=== PATIENT | male | born 1950 | race African-American/Black ===

== ENCOUNTER → 2016-07-14 | Outpatient (CLI) | payer OTHER ==
[2016-07-14 13:40] LABS: Blood Urea Nitrogen 10 mg/dL (9-20); Non-African American GFR(MDRD) >60 (>60 ml/min/1.73 sqM)
--- NOTE | 2016-07-14 15:10 | CT ---
EXAMINATION TYPE: CT chest w con DATE OF EXAM: 07/14/2016 2:22 PM COMPARISON: NONE HISTORY: Patient poor historian. Patient complains of cough. Pulmonary nodule. CT DLP: 241.3 mGycm. Automated Exposure Control for Dose Reduction was Utilized. TECHNIQUE: CT scan of the thorax is performed following with IV Contrast, patient injected with 100 mL of Omnipaque 300. FINDINGS: LUNGS: Mild underlying emphysematous changes seen most pronounced in lung apices. There is mild apica l scarring bilaterally. There is slightly more prominent spiculated scarlike opacity posteriorly righ t upper lung measuring 1.4 x 0.6 cm on axial image 9. There is more nodular scarlike opacity anterior ly left upper lung measuring 1.2 x 0.7 cm on axial image 10, this has some fatty component anteriorly with more soft tissue component inferiorly and posteriorly. There is 5 x 3 mm nodule left lung base laterally on axial image 53. Right lung is clear. No pleural effusion or pneumothorax is seen bilater ally. Tracheobronchial tree is patent. MEDIASTINUM: There are no greater than 1 cm hilar or mediastinal lymph nodes. No pericardial effusi on is seen. Mild mixed plaque in the thoracic aorta is seen. OTHER: Bilateral gynecomastia is noted. A 1.2 cm low dense lesion posteriorly or below level right ki dney on axial image 76 medially likely reflect simple cyst. IMPRESSION: Mild underlying emphysematous change with biapical scarring and slightly more prominent s carlike opacity left upper lung at 2 levels, favor postinflammatory etiology but neoplasm cannot be e xcluded. Advise PET/CT correlation to further evaluate these levels.
== END | disposition home or self-care (01) ==
LOC: RADCTMAIN 13:05
PROVIDERS: ATTEND Nurse Practitioner Acute Care
DX: J43.9 Emphysema, unspecified (principal); J98.4 Other disorders of lung
CPT/HCPCS: 82565; 84520; 71260; 36415; Q9967

== ENCOUNTER 2017-02-16 09:44 | Emergency (ER) | payer MEDICARE, OTHER ==
[2017-02-16 09:50] VITALS: RESP 18; TEMP 97.1
--- NOTE | 2017-02-16 10:14 | ED ---
Abdominal Pain HPI - General Chief Complaint: Abdominal Pain Stated Complaint: constipation Time Seen by Provider: 02/16/17 09:51 Source: patient, RN notes reviewed Mode of arrival: ambulatory Limitations: no limitations - History of Present Illness Initial Comments: 66-year-old male presents emergency Department chief complaint constipation. Patient states him constipation last several weeks. He is discharged from over- the-counter medications which included fiber, stool softeners. Patient states he had some old MiraLAX from his primary care physician is 2 years ago tried this with no relief. He denies any emesis suppositories. Denies abdominal discomfort including nausea, vomiting. Patient has fever, chills, chest pain or shortness of breath. - Related Data Home Medications Medication Instructions Recorded Confirmed Cholecalciferol [Vitamin D3] 1,000 unit PO DAILY 02/16/17 02/16/17 Ibuprofen [Motrin] 800 mg PO TID PRN 02/16/17 02/16/17 Polyethylene Glycol 3350 [Miralax] 17 gm PO DAILY 02/16/17 02/16/17 Potassium Chloride ER [K-Dur 10] 10 meq PO DAILY 02/16/17 02/16/17 Pregabalin [Lyrica] 75 mg PO BID 02/16/17 02/16/17 Psyllium Husk 100% [Metamucil 6 gm PO DAILY 02/16/17 02/16/17 Packet] Vitamin E (Dl,Tocopheryl Acet) 400 unit PO DAILY 02/16/17 02/16/17 [Vitamin E] traMADol HCL [Ultram] 50 mg PO BID PRN 02/16/17 02/16/17 Allergies Allergy/AdvReac Type Severity Reaction Status Date / Time Beta-Blockers Allergy Unknown Verified 02/16/17 10:20 (Beta-Adrenergic Bloc STEROIDS Allergy Unknown Uncoded 02/16/17 09:50 Review of Systems ROS Statement: Those systems with pertinent positive or pertinent negative responses have been documented in the HPI. ROS Other: All systems not noted in ROS Statement are negative. Past Medical History Past Medical History: GERD/Reflux, Hypertension History of Any Multi-Drug Resistant Organisms: None Reported Additional Past Surgical History / Comment(s): LEFT TOE SURGERY, AND RIGHT TOE SURGERY Past Psychological History: No Psychological Hx Reported Smoking Status: Current every day smoker Past Alcohol Use History: Occasional Past Drug Use History: None Reported General Exam Limitations: no limitations General appearance: alert, in no apparent distress Head exam: Present: atraumatic, normocephalic, normal inspection Respiratory exam: Present: normal lung sounds bilaterally. Absent: respiratory distress, wheezes, rales, rhonchi, stridor Cardiovascular Exam: Present: regular rate, normal rhythm, normal heart sounds. Absent: systolic murmur, diastolic murmur, rubs, gallop, clicks GI/Abdominal exam: Present: soft, normal bowel sounds. Absent: distended, tenderness, guarding, rebound, rigid Back exam: Absent: CVA tenderness (R), CVA tenderness (L) Course Vital Signs 02/16/17 09:47 Temperature 97.1 F L Pulse Rate 85 Respiratory 18 Rate Blood Pressure 189/101 O2 Sat by Pulse 99 Oximetry Medical Decision Making - Medical Decision Making 58-year-old male present emergency from for constipation. Patient was given an enema here had a large bowel movement states he feels much better at this time. Patient will be discharged return parameters discussed. Disposition Clinical Impression: Constipation Disposition: HOME SELF-CARE Condition: Stable Instructions: Constipation (ED) Additional Instructions: Please return to the Emergency Department if symptoms worsen or any other concerns. Referrals: Mikael Craig DO [Primary Care Provider] - 1-2 days Time of Disposition: 11:43
--- NOTE | 2017-02-16 10:48 | XR ---
EXAMINATION TYPE: XR KUB DATE OF EXAM: 02/16/2017 CLINICAL DATA: 66-year-old male with pain, constipation for a week, [facility] COMPARISON: None FINDINGS: Lung bases are clear. No evidence for free intraperitoneal air. No dilated small bowel or air-fluid levels. Scattered air and stool seen throughout the colon extendi ng distally into the rectum. Moderate stool within the distal sigmoid and rectum. Pelvic phleboliths. IMPRESSION: 1. Moderate stool in the distal sigmoid and rectum. 2. No evidence of bowel obstruction or free intraperitoneal air.
[2017-02-16 12:19] VITALS: BP 199/93; PULSE 60
== END 2017-02-16 12:24 | disposition home or self-care (01) ==
LOC: EC 09:44
DX: K59.00 Constipation, unspecified (principal); K21.9 Gastro-esophageal reflux disease without esophagitis; I10 Essential (primary) hypertension; F17.200 Nicotine dependence, unspecified, uncomplicated; Z79.899 Other long term (current) drug therapy; Z88.8 Allergy status to other drugs, medicaments and biological substances
CPT/HCPCS: 74000; 99284

== ENCOUNTER → 2017-06-10 | Outpatient (CLI) | payer OTHER ==
[2017-06-10 13:01] LABS: Blood Urea Nitrogen 10 mg/dL (9-20)
--- NOTE | 2017-06-10 16:15 | CT ---
EXAMINATION TYPE: CT chest w con DATE OF EXAM: 06/10/2017 COMPARISON: CT chest July 14, 2016. HISTORY: Follow up solitary pulmonary nodule. CT DLP: 507 mGycm. Automated Exposure Control for Dose Reduction was Utilized. TECHNIQUE: CT scan of the thorax is performed following with IV Contrast, patient injected with 100 mL of Isovue M300. FINDINGS: LUNGS: Mild to moderate underlying emphysematous change is redemonstrated. Spiculated scarlike opacit y posterior left lung apex measuring roughly 15 x 5 mm axial image 10 is not significantly changed fr om prior. The more anterior spiculated lesion however is enlarged now measuring 2.8 x 1.8 cm axial im age 11 making it extremely suspicious for neoplasm. A 4 mm Groundglass nodule left lung base axial im age 54 is slightly less prominent from prior. Right lung remains clear. Tracheobronchial tree is pabon nt MEDIASTINUM: There is new suspicious left suprahilar low dense lymph node measuring 2.0 x 1.8 cm axia l image 26. There are additional suspicious new prevascular lymph nodes, for reference is 1.6 x 1.2 c m lymph node axial image 25. No cardiomegaly or pericardial effusion is seen. Mild calcified plaque aortic arch level is redemonstrated. OTHER: Small degree of bilateral gynecomastia is again seen. Slight underlying levoconvex scoliosis c entered in the upper thoracic spine is again seen. IMPRESSION: Mild to moderate emphysematous change with increasing size of anterior scarlike opacity l eft lung apex and new left suprahilar and mediastinal adenopathy is strongly suspicious for neoplasm. Confirmation with PET CT can be performed if desired to confirm and/or help stage. Consider bronchos copy or CT-guided sampling to confirm.
== END | disposition home or self-care (01) ==
LOC: RADCTMAIN 12:25
PROVIDERS: ATTEND Internal Medicine Critical Care Medicine
DX: J43.9 Emphysema, unspecified (principal); R59.0 Localized enlarged lymph nodes
CPT/HCPCS: 82565; 84520; 71260; 36415; Q9967

== ENCOUNTER → 2017-11-21 | Outpatient (CLI) | payer OTHER ==
--- NOTE | 2017-11-23 06:46 | PE ---
EXAMINATION TYPE: PET CT fusion skull to thigh DATE OF EXAM: 11/21/2017 COMPARISON: Chest CT June 10, 2017 and older study July 14, 2016 HISTORY: Lung cancer initial staging study. TECHNIQUE: Following the intravenous administration of 12.09 mCi of F-18 FDG, whole body images are performed from the skull base to the midthigh. Images are reviewed on the computer in the coronal, a xial, and sagittal planes. Reconstructed rotating images are created on independent workstation and reviewed on the computer. A noncontrast CT is performed in conjunction with the PET scan. SCAN: Initial Scan FINDINGS: SKULL BASE AND NECK: No suspicious hypermetabolic uptake is present CHEST, MEDIASTINUM, AND HILAR REGION: There is redemonstration background mild to moderate underlying emphysematous change. Correlating with prior CTs there is enlarging anterior left upper lobe spicula thiago mass or neoplasm with abnormal hypermetabolic uptake measuring 3.2 x 2.3 cm axial image 77, max S UV is 13.78. Lesion abuts the anterior pleura. Scarlike opacity measuring 1.6 x 0.6 cm superior and posterior to this axial image 71 does not show a bnormal hypermetabolic uptake. Corresponding to recent CT there is abnormal hypermetabolic uptake in left suprahilar and prevascular subcentimeter lymph nodes near axial image 94, max SUV is 6.59. There is redemonstration of 4 mm groundglass subpleural nodule left lower lobe axial image 133 withou t hypermetabolic uptake. ABDOMEN AND PELVIS: No suspicious hypermetabolic uptake is seen in the abdomen or pelvis. Normal exc retion is present. OSSEOUS STRUCTURES: No suspicious hypermetabolic uptake is seen. OTHER CT: There is age-related atrophy and chronic small vessel ischemic change in visualized brain p arenchyma. Mild to moderate calcified plaque bilateral carotid bulb level is present. Slightly nodular bilateral gynecomastia is redemonstrated. There is moderate calcified plaque of the distal abdominal aorta extending into pelvic branch vessels . 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 No multicentric or distal metastatic disease noted. TNM STAGING T2a,N2,M0 AJCC STAGING IIIa
== END | disposition home or self-care (01) ==
LOC: RADPETMAIN 11:47
PROVIDERS: ATTEND Nurse Practitioner Acute Care
DX: C34.90 Malignant neoplasm of unspecified part of unspecified bronchus or lung (principal); R59.0 Localized enlarged lymph nodes
CPT/HCPCS: 78815; A9552

== ENCOUNTER → 2017-12-16 | Outpatient (CLI) | payer OTHER ==
--- NOTE | 2017-12-16 23:02 | FL ---
MODIFIED SWALLOW / DEGLUTITION STUDY DATE OF EXAM: 12/16/2017 CLINICAL HISTORY: 67-year-old male with history of lung cancer and trouble swallowing, Dysphagia. TECHNIQUE: Deglutition study is performed utilizing thin liquid barium, honey and nectar thick liqui d barium, barium thick applesauce, and barium coated cracker. COMPARISON: None. Total fluoroscopy time: 3 minutes 20 seconds. Total images: None. Real-time fluoroscopy support was provided to speech pathology. FINDINGS: Swallow initiation and AP transit of bolus was delayed with premature spillage to the level of the va llecula. There is silent deep penetration with thin liquids without aspiration. Occasional flash penetration w as demonstrated with nectar liquids. No other penetration or aspiration is seen. IMPRESSION: 1. Oral dysphagia. There is silent deep penetration with thin liquid. Additionally, there is flash pe netration with nectar liquids. No other penetration or aspiration seen. 2. Please refer to speech therapist notes for further details if necessary.
== END ==
LOC: RADFLMAIN 11:23
PROVIDERS: ATTEND Family Medicine
DX: R13.11 Dysphagia, oral phase (principal)
CPT/HCPCS: 74230

== ENCOUNTER → 2018-08-11 | Outpatient (CLI) | payer OTHER ==
--- NOTE | 2018-08-11 14:58 | MR ---
MR brain with and without contrast HISTORY: Memory loss Multiplanar multisequence and postcontrast images through the brain following 6.5 cc Gadavist IV No comparisons There is no restricted diffusion. There are normal vascular flow voids. Orbits show symmetric appeara nce. Periventricular confluent and scattered white matter hyperintensities are present on inversion r ecovery T2-weighted sequences and are extensive. There is some motion on the exam. Increased signal a lso present within the ge. Age-related atrophy is present. No abnormal enhancement following contra st administration. Corpus callosum, cervical medullary junction, cerebellopontine angles are normal. There is a partially empty sella. Mild sinus disease in the ethmoid air cells. IMPRESSION: Age-related atrophy and chronic small vessel ischemia.
== END | disposition home or self-care (01) ==
LOC: RADMRIMAIN 12:58
PROVIDERS: ATTEND Psychiatry & Neurology Neurology
DX: G31.1 Senile degeneration of brain, not elsewhere classified (principal); I67.82 Cerebral ischemia
CPT/HCPCS: 70553; A9585

== ENCOUNTER 2018-12-31 20:35 | Inpatient (IN) | payer OTHER, MEDICARE ==
[2018-12-31] MEDS ORDERED: SODIUM CHLORIDE 0.9% 1,000 ML IV STA (21:03)
--- NOTE | 2018-12-31 21:03 | ED ---
Dizziness HPI - General Chief Complaint: Syncope Stated Complaint: Syncope Time Seen by Provider: 12/31/18 20:40 Source: patient, EMS, RN notes reviewed, old records reviewed Mode of arrival: EMS Limitations: physical limitation - History of Present Illness Initial Comments: This is a 68-year-old male the ER for evaluation. Patient presents today for e valuation of syncopal event. Waddell his head. Patient is on blood thinners does have history of underlying CA. Patient himself in the ER is denying any complaints but minimally responsive to questioning. History obtained from family as well as EMS. MD Complaint: dizziness, lightheadedness, near syncope (Syncopal event) -: minutes(s) Timing: sudden onset Description: sense of movement, off-balance History of Same: Yes History of Trauma: Yes Severity: mild Improves With: nothing Worsens With: nothing Associated Symptoms: denies other symptoms - Related Data Home Medications Medication Instructions Recorded Confirmed Polyethylene Glycol 3350 [Miralax] 17 gm PO DAILY 02/16/17 12/31/18 DULoxetine HCL [Cymbalta] 20 mg PO DAILY 12/31/18 12/31/18 Furosemide [Lasix] 20 mg PO DAILY 12/31/18 12/31/18 Naproxen 500 mg PO BID PRN 12/31/18 12/31/18 Tamsulosin [Flomax] 0.4 mg PO DAILY 12/31/18 12/31/18 amLODIPine [Norvasc] 5 mg PO DAILY 12/31/18 12/31/18 Allergies Allergy/AdvReac Type Severity Reaction Status Date / Time Beta-Blockers Allergy Unknown Verified 12/31/18 21:58 (Beta-Adrenergic Bloc STEROIDS Allergy Unknown Uncoded 12/31/18 20:50 Review of Systems ROS Statement: Those systems with pertinent positive or pertinent negative responses have been documented in the HPI. ROS Other: All systems not noted in ROS Statement are negative. Past Medical History Past Medical History: Cancer, GERD/Reflux, Hypertension History of Any Multi-Drug Resistant Organisms: None Reported Additional Past Surgical History / Comment(s): LEFT TOE SURGERY, AND RIGHT TOE SURGERY, scar on chest pt states " it just grew there" Past Psychological History: No Psychological Hx Reported Smoking Status: Current every day smoker Past Alcohol Use History: Abuse, Daily, Heavy Past Drug Use History: Marijuana General Exam Limitations: physical limitation General appearance: alert, in no apparent distress, cachectic Head exam: Present: atraumatic, normocephalic, normal inspection Eye exam: Present: normal appearance, PERRL, EOMI. Absent: scleral icterus, conjunctival injection, periorbital swelling ENT exam: Present: normal exam, mucous membranes moist Neck exam: Present: normal inspection. Absent: tenderness, meningismus, lymphadenopathy Respiratory exam: Present: normal lung sounds bilaterally. Absent: respiratory distress, wheezes, rales, rhonchi, stridor Cardiovascular Exam: Present: regular rate, normal rhythm, normal heart sounds. Absent: systolic murmur, diastolic murmur, rubs, gallop, clicks GI/Abdominal exam: Present: soft, normal bowel sounds. Absent: distended, tenderness, guarding, rebound, rigid Extremities exam: Present: normal inspection, full ROM, normal capillary refill. Absent: tenderness, pedal edema, joint swelling, calf tenderness Back exam: Present: normal inspection Neurological exam: Present: alert, oriented X3, CN II-XII intact Psychiatric exam: Present: normal affect, normal mood Skin exam: Present: warm, dry, intact, normal color. Absent: rash Course Vital Signs 12/31/18 20:45 Temperature 98.1 F Pulse Rate 65 Respiratory 14 Rate Blood Pressure 105/51 O2 Sat by Pulse 99 Oximetry - Reevaluation(s) Reevaluation #1: 12/31/18 21:03 Medical records reviewed Reevaluation #2: 12/31/18 22:41 Patient having no improvement continued to sleep throughout exam and not reactive throughout reevaluation - Consultations Consultation #1: Spoke with Dr. Chakraborty who will admit patient EKG Findings - EKG Comments: EKG Findings:: EKG shows sinus rhythm rate of 68, VA 134, QRS 02, QTc 495 Medical Decision Making - Medical Decision Making Female the ER for evaluation will admit this patient for observation regarding syncopal event, events surrounding it since later unreliable. Patient is a cancer patient with a decreased appetite lately. No other significant findings noted - Lab Data Result diagrams: 12/31/18 20:50 12/31/18 20:50 Lab Results 12/31/18 12/31/18 12/31/18 Range/Units 20:50 20:50 20:50 WBC 14.1 H (3.8-10.6) k/uL RBC 4.00 L (4.30-5.90) m/uL Hgb 11.8 L (13.0-17.5) gm/dL Hct 34.6 L (39.0-53.0) % MCV 86.6 (80.0-100.0) fL MCH 29.4 (25.0-35.0) pg MCHC 34.0 (31.0-37.0) g/dL RDW 13.6 (11.5-15.5) % Plt Count 450 (150-450) k/uL Neutrophils % 62 % Lymphocytes % 24 % Monocytes % 7 % Eosinophils % 1 % Basophils % 1 % Neutrophils # 8.8 H (1.3-7.7) k/uL Lymphocytes # 3.3 (1.0-4.8) k/uL Monocytes # 1.0 (0-1.0) k/uL Eosinophils # 0.2 (0-0.7) k/uL Basophils # 0.2 (0-0.2) k/uL PT 10.1 (9.0-12.0) sec INR 0.9 (<1.2) APTT 23.5 (22.0-30.0) sec Sodium 129 L (137-145) mmol/L Potassium 3.3 L (3.5-5.1) mmol/L Chloride 91 L (98-107) mmol/L Carbon Dioxide 25 (22-30) mmol/L Anion Gap 13 mmol/L BUN 6 L (9-20) mg/dL Creatinine 0.50 L (0.66-1.25) mg/dL Est GFR (CKD-EPI)AfAm >90 (>60 ml/min/1.73 sqM) Est GFR (CKD-EPI)NonAf >90 (>60 ml/min/1.73 sqM) Glucose 119 H (74-99) mg/dL POC Glucose (mg/dL) (75-99) mg/dL POC Glu Pantograph Setter ID Calcium 10.2 (8.4-10.2) mg/dL Phosphorus 3.2 (2.5-4.5) mg/dL Magnesium 1.3 L (1.6-2.3) mg/dL Total Bilirubin 1.1 (0.2-1.3) mg/dL AST 38 (17-59) U/L ALT <6 L (21-72) U/L Alkaline Phosphatase 90 (38-126) U/L Creatine Kinase 41 L (55-170) U/L Troponin I (0.000-0.034) ng/mL NT-Pro-B Natriuret Pep pg/mL Total Protein 7.3 (6.3-8.2) g/dL Albumin 3.2 L (3.5-5.0) g/dL 12/31/18 12/31/18 12/31/18 Range/Units 20:50 20:50 21:02 WBC (3.8-10.6) k/uL RBC (4.30-5.90) m/uL Hgb (13.0-17.5) gm/dL Hct (39.0-53.0) % MCV (80.0-100.0) fL MCH (25.0-35.0) pg MCHC (31.0-37.0) g/dL RDW (11.5-15.5) % Plt Count (150-450) k/uL Neutrophils % % Lymphocytes % % Monocytes % % Eosinophils % % Basophils % % Neutrophils # (1.3-7.7) k/uL Lymphocytes # (1.0-4.8) k/uL Monocytes # (0-1.0) k/uL Eosinophils # (0-0.7) k/uL Basophils # (0-0.2) k/uL PT (9.0-12.0) sec INR (<1.2) APTT (22.0-30.0) sec Sodium (137-145) mmol/L Potassium (3.5-5.1) mmol/L Chloride (98-107) mmol/L Carbon Dioxide (22-30) mmol/L Anion Gap mmol/L BUN (9-20) mg/dL Creatinine (0.66-1.25) mg/dL Est GFR (CKD-EPI)AfAm (>60 ml/min/1.73 sqM) Est GFR (CKD-EPI)NonAf (>60 ml/min/1.73 sqM) Glucose (74-99) mg/dL POC Glucose (mg/dL) 145 H (75-99) mg/dL POC Glu Pantograph Setter ID Emily Teran Calcium (8.4-10.2) mg/dL Phosphorus (2.5-4.5) mg/dL Magnesium (1.6-2.3) mg/dL Total Bilirubin (0.2-1.3) mg/dL AST (17-59) U/L ALT (21-72) U/L Alkaline Phosphatase (38-126) U/L Creatine Kinase (55-170) U/L Troponin I <0.012 (0.000-0.034) ng/mL NT-Pro-B Natriuret Pep 264 pg/mL Total Protein (6.3-8.2) g/dL Albumin (3.5-5.0) g/dL - Radiology Data Radiology results: report reviewed (CT brain C-spine chest x-rays negative for acute disease), image reviewed Disposition Clinical Impression: Syncope, Anorexia, Weakness Disposition: ADMITTED IP TO THIS HOSP Condition: Fair Is patient prescribed a controlled substance at d/c from ED?: No Referrals: Mikael Craig DO [Primary Care Provider] - 1-2 days
[2018-12-31 21:09] LABS: Glucose,Whole Blood 145 mg/dL (75-99)
[2018-12-31 21:23] LABS: AST 38 U/L (17-59); African American GFR (CKD) >90 (>60 ml/min/1.73 sqM); Albumin 3.2 g/dL (3.5-5.0); Anion Gap 13 mmol/L; Blood Urea Nitrogen 6 mg/dL (9-20); Calcium 10.2 mg/dL (8.4-10.2); Carbon Dioxide 25 mmol/L (22-30); Chloride 91 mmol/L (98-107); Glucose 119 mg/dL (74-99); Magnesium 1.3 mg/dL (1.6-2.3); Phosphorus 3.2 mg/dL (2.5-4.5); Sodium 129 mmol/L (137-145); Total Bilirubin 1.1 mg/dL (0.2-1.3); Total Protein 7.3 g/dL (6.3-8.2)
[2018-12-31 21:24] LABS: ALT <6 U/L (21-72); Alkaline Phosphatase 90 U/L (38-126); Creatine Kinase 41 U/L (55-170); Potassium 3.3 mmol/L (3.5-5.1)
[2018-12-31 21:26] LABS: INR 0.9 (<1.2); Partial Thromboplastin Time 23.5 sec (22.0-30.0); Prothrombin Time 10.1 sec (9.0-12.0)
[2018-12-31 21:35] LABS: Basophils # (A) 0.2 k/uL (0-0.2); Basophils % (A) 1 %; Eosinophils # (A) 0.2 k/uL (0-0.7); Eosinophils % (A) 1 %; HCT 34.6 % (39.0-53.0); HGB 11.8 gm/dL (13.0-17.5); Lymphocytes # (A) 3.3 k/uL (1.0-4.8); Lymphocytes % (A) 24 %; MCH 29.4 pg (25.0-35.0); MCV 86.6 fL (80.0-100.0); Mean Platelet Volume 6.4; Monocytes % (A) 7 %; Neutrophils # (A) 8.8 k/uL (1.3-7.7); Neutrophils % (A) 62 %; Platelet Count 450 k/uL (150-450); RDW 13.6 % (11.5-15.5); WBC 14.1 k/uL (3.8-10.6)
--- NOTE | 2018-12-31 21:52 | XR ---
EXAMINATION TYPE: XR chest 2V DATE OF EXAM: 12/31/2018 COMPARISON: 06/03/2017 HISTORY: Syncope. Fall. TECHNIQUE: Frontal and lateral views of the chest are obtained. FINDINGS: There is an approximate 8 cm masslike density left upper lobe. There is increased density at the aortopulmonary window consistent with adenopathy. Heart size is normal. There is no heart fail ure. There is no pleural effusion. Bony thorax appears intact. IMPRESSION: Left upper lobe mass with mediastinal adenopathy significantly increased compared to las t exam. No heart failure.
--- NOTE | 2018-12-31 21:58 | CT ---
EXAMINATION TYPE: CT brain krystian george con DATE OF EXAM: 12/31/2018 COMPARISON: None HISTORY: fall, ams Neck pain CT DLP: 1372.1 mGycm Automated exposure control for dose reduction was used. TECHNIQUE: CT scan of the head and cervical spine are performed without contrast. FINDINGS: There is diffuse cerebral atrophy. There is hypodensity in the periventricular white rosemarie er. Exam is limited somewhat by motion. There is no midline shift. There is no sign of intracranial h emorrhage. The calvarium is intact. There is some straightening of the cervical spine. There is some degenerative disc space narrowing at C3-4 and C5-6 with spurring. Posterior elements are intact. There is no evidence for fracture. The s kull base is intact. IMPRESSION: Spondylotic changes in the cervical spine. No fracture. Cerebral atrophy and chronic small vessel ischemia. No acute intracranial abnormality.
[2018-12-31] MEDS ORDERED: ASPIRIN 81 MG PO STA (22:40)
[2018-12-31] MEDS ORDERED: NITROGLYCERIN SL TABS 0.4 MG TAB SUBLINGUAL PRN (22:40)
[2018-12-31] MEDS: SODIUM CHLORIDE 0.9% 1,000 ML IV SCH (22:55)
[2018-12-31 23:42] LABS: Appearance,Urine Cloudy (Clear); Bacteria,Urine Rare /hpf; Bilirubin,Urine Negative (Negative); Blood,Urine Negative (Negative); Color,Urine Light Yellow; Glucose,Urine (UA) Negative (Negative); Hyaline Casts,Urine 5 /lpf (0-2); Ketones,Urine Negative (Negative); Leukocyte Esterase,Urine Trace (Negative); Mucus,Urine Rare /hpf; Nitrite,Urine Negative (Negative); PH, Urine 7.5 (5.0-8.0); Protein,Urine Negative (Negative); RBC,Urine 1 /hpf (0-5); Specific Gravity,Urine 1.004 (1.001-1.035); Squamous Epithelial Cell,Urine <1 /hpf (0-4); Urobilinogen,Urine <2.0 mg/dL (<2.0); WBC,Urine 5 /hpf (0-5)
[2018-12-31] MEDS ORDERED: POTASSIUM CHLORIDE 20 MEQ in WATER FOR INJECTION 1 100ML.BAG IVPB ONE (23:45)
[2018-12-31] MEDS: MAGNESIUM SULFATE-D5W PMX 1 GM in DEXTROSE/WATER 1 100ML.BAG IVPB SCH (23:46)
[2019-01-01] MEDS: MAGNESIUM SULFATE-D5W PMX 1 GM in DEXTROSE/WATER 1 100ML.BAG IVPB SCH (01:25)
[2019-01-01 03:36] LABS: Basophils # (A) 0.1 k/uL (0-0.2); Basophils % (A) 0 %; Eosinophils # (A) 0.1 k/uL (0-0.7); Eosinophils % (A) 1 %; HCT 35.6 % (39.0-53.0); HGB 12.2 gm/dL (13.0-17.5); Lymphocytes # (A) 1.5 k/uL (1.0-4.8); Lymphocytes % (A) 12 %; MCH 29.4 pg (25.0-35.0); MCHC 34.2 g/dL (31.0-37.0); MCV 85.8 fL (80.0-100.0); Mean Platelet Volume 5.4; Monocytes # (A) 0.6 k/uL (0-1.0); Monocytes % (A) 5 %; Neutrophils # (A) 9.7 k/uL (1.3-7.7); Neutrophils % (A) 80 %; Platelet Count 399 k/uL (150-450); RBC 4.14 m/uL (4.30-5.90); RDW 13.5 % (11.5-15.5); WBC 12.1 k/uL (3.8-10.6)
[2019-01-01 03:51] LABS: ALT 13 U/L (21-72); AST 29 U/L (17-59); African American GFR (CKD) >90 (>60 ml/min/1.73 sqM); Albumin 3.3 g/dL (3.5-5.0); Alkaline Phosphatase 107 U/L (38-126); Anion Gap 9 mmol/L; Blood Urea Nitrogen 7 mg/dL (9-20); Calcium 10.5 mg/dL (8.4-10.2); Carbon Dioxide 29 mmol/L (22-30); Chloride 90 mmol/L (98-107); Cholesterol 124 mg/dL (<200); Glucose 127 mg/dL (74-99); HDL Cholesterol 51 mg/dL (40-60); LDL Cholesterol,Calculated 65 mg/dL (0-99); Potassium 3.1 mmol/L (3.5-5.1); Sodium 128 mmol/L (137-145); Total Bilirubin 0.9 mg/dL (0.2-1.3); Total Protein 7.4 g/dL (6.3-8.2); Triglycerides 41 mg/dL (<150)
[2019-01-01] MEDS ORDERED: POTASSIUM CHLORIDE ER 20 MEQ TAB.ER PO SCH (08:00)
[2019-01-01] MEDS: ASPIRIN 325 MG TAB PO SCH (08:56)
[2019-01-01] MEDS: POTASSIUM BICARBONATE/CIT AC 20 MEQ TABLET.EFF PO SCH ×2 (09:40→12:59)
[2019-01-01] MEDS: POLYETHYLENE GLYCOL 3350 17 GM POWD.PACK PO SCH (11:12)
[2019-01-01 11:36] VITALS: BMI 16.7
--- NOTE | 2019-01-01 12:42 | P.HPIM ---
History of Present Illness H&P Date: 01/01/19 Chief Complaint: Syncope and dizziness 68-year-old male patient brought to ED with complaint of a syncopal event; according to patient was coming out of the bedroom to eat when he felt very dizzy, weak and lightheaded and passed out on the floor; relates that patie nt didn't hit his head on the floor which is carpeted; patient did wake up and helped him to the dining chair but he remained weak and started having some tremors to both hands and sweaty at which time called EMS Review of Systems REVIEW OF SYSTEMS: CONSTITUTIONAL: No fever, no malaise, no fatigue. HEENT: No recent visual problems or hearing problems. Denied any sore throat. CARDIOVASCULAR: No chest pain, orthopnea, PND, no palpitations, no syncope. PULMONARY: No shortness of breath, no cough, no hemoptysis. GASTROINTESTINAL: No diarrhea, no nausea, no vomiting, no abdominal pain. NEUROLOGICAL: No headaches, no weakness, no numbness. HEMATOLOGICAL: Denies any bleeding or petechiae. GENITOURINARY: Denies any burning micturition, frequency, or urgency. MUSCULOSKELETAL/RHEUMATOLOGICAL: Denies any joint pain, swelling, or any muscle pain. ENDOCRINE: Denies any polyuria or polydipsia. The rest of the 14-point review of systems is negative. Past Medical History Past Medical History: Cancer, GERD/Reflux, Hypertension Additional Past Medical History / Comment(s): lung ca History of Any Multi-Drug Resistant Organisms: None Reported Additional Past Surgical History / Comment(s): LEFT TOE SURGERY, AND RIGHT TOE SURGERY, scar on chest pt states " it just grew there" Past Anesthesia/Blood Transfusion Reactions: No Reported Reaction Past Psychological History: No Psychological Hx Reported Smoking Status: Current every day smoker Past Alcohol Use History: Abuse, Daily, Heavy Additional Past Alcohol Use History / Comment(s): per pt consumes beer/shot three times daily, last use 12/31/18 Past Drug Use History: Marijuana - Past Family History Mother History Unknown: Yes Father History Unknown: Yes Medications and Allergies Home Medications Medication Instructions Recorded Confirmed Type Polyethylene Glycol 3350 [Miralax] 17 gm PO DAILY 02/16/17 12/31/18 History DULoxetine HCL [Cymbalta] 20 mg PO DAILY 12/31/18 12/31/18 History Furosemide [Lasix] 20 mg PO DAILY 12/31/18 12/31/18 History Naproxen 500 mg PO BID PRN 12/31/18 12/31/18 History Tamsulosin [Flomax] 0.4 mg PO DAILY 12/31/18 12/31/18 History amLODIPine [Norvasc] 5 mg PO DAILY 12/31/18 12/31/18 History Allergies Allergy/AdvReac Type Severity Reaction Status Date / Time Beta-Blockers Allergy Unknown Verified 12/31/18 21:58 (Beta-Adrenergic Bloc STEROIDS Allergy Unknown Uncoded 12/31/18 20:50 Physical Exam Vitals: Vital Signs Temp Pulse Pulse Resp BP BP Pulse Ox 01/01/19 07:58 97.9 F 65 16 140/67 97 01/01/19 03:10 97.8 F 74 16 132/62 01/01/19 00:05 97.9 F 69 16 150/69 99 12/31/18 23:48 98.7 F 68 18 120/67 96 12/31/18 21:00 65 18 128/87 98 12/31/18 20:45 98.1 F 65 14 105/51 99 Intake and Output 12/31/18 01/01/19 01/01/19 22:59 06:59 14:59 Output Total 400 Balance -400 Output: Urine 400 Other: Weight 49.895 kg - Constitutional General appearance: Present: average body habitus, cooperative, no acute distress - EENT Eyes: Present: anicteric sclerae, EOMI, PERRLA, normal appearance ENT: Present: hearing grossly normal, normal oropharynx Ears: bilateral: normal - Neck Neck: Present: normal ROM. Absent: lymphadenopathy, rigidity, thyromegaly Carotids: negative: bruit present Thyroid: bilateral: normal size, negative: enlarged, nodule - Respiratory Respiratory: bilateral: CTA, negative: rales, rhonchi, wheezing - Cardiovascular Rhythm: regular Heart sounds: normal: S1, S2 Abnormal Heart Sounds: Absent: systolic murmur, diastolic murmur - Gastrointestinal General gastrointestinal: Present: normal bowel sounds, soft. Absent: distended, organomegaly, tenderness - Genitourinary Genitourinary Comment(s): deferred - Integumentary Integumentary: Present: normal turgor. Absent: jaundiced, rash, ulcer - Neurologic Neurologic: Present: CNII-XII intact. Absent: focal deficits - Musculoskeletal Musculoskeletal: Present: gait normal, strength equal bilaterally - Psychiatric Psychiatric: Present: A&O x's 3, appropriate affect, intact judgment & insight Results CBC & Chem 7: 01/01/19 03:22 01/01/19 03:22 Labs: Abnormal Lab Results - Last 24 Hours (Table) 12/31/18 12/31/18 12/31/18 Range/Units 20:50 20:50 21:02 WBC 14.1 H (3.8-10.6) k/uL RBC 4.00 L (4.30-5.90) m/uL Hgb 11.8 L (13.0-17.5) gm/dL Hct 34.6 L (39.0-53.0) % Neutrophils # 8.8 H (1.3-7.7) k/uL Sodium 129 L (137-145) mmol/L Potassium 3.3 L (3.5-5.1) mmol/L Chloride 91 L (98-107) mmol/L BUN 6 L (9-20) mg/dL Creatinine 0.50 L (0.66-1.25) mg/dL Glucose 119 H (74-99) mg/dL POC Glucose (mg/dL) 145 H (75-99) mg/dL Calcium (8.4-10.2) mg/dL Magnesium 1.3 L (1.6-2.3) mg/dL ALT <6 L (21-72) U/L Creatine Kinase 41 L (55-170) U/L Albumin 3.2 L (3.5-5.0) g/dL Ur Leukocyte Esterase (Negative) Urine Bacteria (None) /hpf Hyaline Casts (0-2) /lpf Urine Mucus (None) /hpf 12/31/18 01/01/19 01/01/19 Range/Units 23:14 03:22 03:22 WBC 12.1 H (3.8-10.6) k/uL RBC 4.14 L (4.30-5.90) m/uL Hgb 12.2 L (13.0-17.5) gm/dL Hct 35.6 L (39.0-53.0) % Neutrophils # 9.7 H (1.3-7.7) k/uL Sodium 128 L (137-145) mmol/L Potassium 3.1 L (3.5-5.1) mmol/L Chloride 90 L (98-107) mmol/L BUN 7 L (9-20) mg/dL Creatinine 0.54 L (0.66-1.25) mg/dL Glucose 127 H (74-99) mg/dL POC Glucose (mg/dL) (75-99) mg/dL Calcium 10.5 H (8.4-10.2) mg/dL Magnesium (1.6-2.3) mg/dL ALT 13 L (21-72) U/L Creatine Kinase (55-170) U/L Albumin 3.3 L (3.5-5.0) g/dL Ur Leukocyte Esterase Trace H (Negative) Urine Bacteria Rare H (None) /hpf Hyaline Casts 5 H (0-2) /lpf Urine Mucus Rare H (None) /hpf Thrombosis Risk Factor Assmnt - Choose All That Apply Any of the Below Risk Factors Present?: Yes Other Risk Factors: Yes Each Risk Factor Represents 2 Points: Age 61-74 years Thrombosis Risk Factor Assessment Total Risk Factor Score: 2 Thrombosis Risk Factor Assessment Level: Low Risk Assessment and Plan Assessment: 1. Acute syncope; multifactorial; poor oral intake, dehydration, electrolyte imbalance - We will continue to monitor patient on telemetry 2. Electrolyte imbalance; hyponatremia/hypokalemia - We'll start patient on IV fluids, normal saline at a rate of 100 mL an hour; monitor renal function and electrolytes closely - Patient was treated for hypokalemia in ED; we will order stat labs to follow- up on electrolyte abnormality and supplement accordingly 3. Leukocytosis; possibly reactive; we will continue to monitor CBC and initiate sepsis workup if white blood count continues to trend upward patient is febrile 4. Hypertension; patient's blood pressure remains soft possibly due to dehydration; we will hold off on oral antihypertensive therapy until blood pressures improved 5. Lungs CA; patient relates that he was diagnosed about 3 years ago and has decided not to pursue any treatment 6. Constipation; continue with home dose of MiraLAX 7. DVT prophylaxis; SCDs/early ambulation CODE STATUS; full code Time with Patient: Greater than 30
[2019-01-01] MEDS: TAMSULOSIN 0.4 MG CAP.ER.24H PO SCH (12:59)
[2019-01-01] MEDS: SODIUM CHLORIDE 0.9% 1,000 ML IV SCH ×2 (13:00→21:11)
[2019-01-02] MEDS: SODIUM CHLORIDE 0.9% 1,000 ML IV SCH ×2 (01:58→15:39)
[2019-01-02 08:00] LABS: Basophils # (A) 0.1 k/uL (0-0.2); Basophils % (A) 1 %; Eosinophils # (A) 0.1 k/uL (0-0.7); Eosinophils % (A) 1 %; HCT 33.2 % (39.0-53.0); HGB 11.1 gm/dL (13.0-17.5); Lymphocytes # (A) 1.3 k/uL (1.0-4.8); Lymphocytes % (A) 15 %; MCH 29.2 pg (25.0-35.0); MCHC 33.5 g/dL (31.0-37.0); MCV 87.2 fL (80.0-100.0); Mean Platelet Volume 5.7; Monocytes # (A) 0.7 k/uL (0-1.0); Monocytes % (A) 8 %; Neutrophils # (A) 6.5 k/uL (1.3-7.7); Neutrophils % (A) 73 %; Platelet Count 373 k/uL (150-450); RBC 3.81 m/uL (4.30-5.90); RDW 13.7 % (11.5-15.5); WBC 8.9 k/uL (3.8-10.6)
[2019-01-02 08:13] LABS: African American GFR (CKD) >90 (>60 ml/min/1.73 sqM); Anion Gap 7 mmol/L; Blood Urea Nitrogen 6 mg/dL (9-20); Calcium 10.3 mg/dL (8.4-10.2); Carbon Dioxide 30 mmol/L (22-30); Chloride 92 mmol/L (98-107); Glucose 93 mg/dL (74-99); Potassium 3.4 mmol/L (3.5-5.1); Sodium 129 mmol/L (137-145)
[2019-01-02] MEDS: TAMSULOSIN 0.4 MG CAP.ER.24H PO SCH ×3 (09:35→09:46)
[2019-01-02] MEDS: DULoxetine HCL 20 MG CAPSULE.DR PO SCH (09:35)
[2019-01-02] MEDS: ASPIRIN 325 MG TAB PO SCH (09:35)
[2019-01-02] MEDS: POLYETHYLENE GLYCOL 3350 17 GM POWD.PACK PO SCH ×2 (09:35→09:47)
[2019-01-02] MEDS ORDERED: Potassium Replacement Protocol 1 EACH MISC MISCELLANE PRN (14:18)
[2019-01-02] MEDS ORDERED: LORazepam 2 MG/ML INJ IV PRN ×3 (14:19)
[2019-01-02] MEDS ORDERED: Magnesium Replacement Protocol 1 EACH MISC MISCELLANE PRN (14:30)
[2019-01-02] MEDS ORDERED: POTASSIUM CHLORIDE ER 20 MEQ TAB.ER PO SCH (15:00)
[2019-01-02] MEDS ORDERED: POTASSIUM BICARBONATE/CIT AC 20 MEQ TABLET.EFF PO ONE (15:02)
[2019-01-02] MEDS: MAGNESIUM SULFATE-D5W PMX 1 GM in DEXTROSE/WATER 1 100ML.BAG IVPB SCH ×2 (15:38→17:11)
--- NOTE | 2019-01-02 15:38 | P.PN ---
Subjective Progress Note Date: 01/02/19 Principal diagnosis: Acute syncope secondary to electrolyte imbalance and dehydration due to poor oral intake Hypokalemia/hyponatremia Reactive leukocytosis 68-year-old male patient brought to ED with complaint of a syncopal event; according to patient was coming out of the bedroom to eat when he felt very dizzy, weak and lightheaded and passed out on the floor; relates that patient didn't hit his head on the floor which is carpeted; patient did wake up and helped him to the dining chair but he remained weak and started having some tremors to both hands and sweaty at which time called EMS 01/02/2019 Patient is seen and evaluated in room; denies any significant complaint; wants to be able to go home Vital signs are reviewed and show a temperature of 97.6, pulse 60, respiration 15 and blood pressure of 155/75 with SpO2 of 99% on room air Labs show a CBC with hemoglobin of 11.9, sodium of 129 which is improved from 128 yesterday; potassium of 3.4; calcium of 10.3 and magnesium of 1.5 We will supplement potassium and magnesium per protocol; continue with IV fluid hydration and monitor calcium levels closely; we will recommend further workup if calcium levels remain elevated I after adequate hydration; we will continue IV fluids in form of normal saline and continue to monitor sodium levels Patient's blood pressure remains elevated; home medications namely amlodipine 5 mg daily was held upon admission due to dehydration and hypotension; we will reorder home meds and continue to monitor Possible discharge in next 24-48 hours once electrolyte imbalance is corrected Objective - Vital Signs Vital signs: Vital Signs Temp 97.6 F 01/02/19 05:08 Pulse 60 01/02/19 05:08 Resp 15 01/02/19 05:08 BP 155/75 01/02/19 05:08 Pulse Ox 99 01/02/19 05:08 Intake & Output 01/01/19 01/02/19 01/02/19 19:59 06:59 18:59 Intake Total Output Total Balance Weight Intake: Oral Output: Urine Other: # Voids - Exam - Constitutional General appearance: Present: average body habitus, cooperative, no acute distress - EENT Eyes: Present: anicteric sclerae, EOMI, PERRLA, normal appearance ENT: Present: hearing grossly normal, normal oropharynx Ears: bilateral: normal - Neck Neck: Present: normal ROM. Absent: lymphadenopathy, rigidity, thyromegaly Carotids: negative: bruit present Thyroid: bilateral: normal size, negative: enlarged, nodule - Respiratory Respiratory: bilateral: CTA, negative: rales, rhonchi, wheezing - Cardiovascular Rhythm: regular Heart sounds: normal: S1, S2 Abnormal Heart Sounds: Absent: systolic murmur, diastolic murmur - Gastrointestinal General gastrointestinal: Present: normal bowel sounds, soft. Absent: distended, organomegaly, tenderness - Genitourinary Genitourinary Comment(s): deferred - Integumentary Integumentary: Present: normal turgor. Absent: jaundiced, rash, ulcer - Neurologic Neurologic: Present: CNII-XII intact. Absent: focal deficits - Musculoskeletal Musculoskeletal: Present: gait normal, strength equal bilaterally - Psychiatric Psychiatric: Present: A&O x's 3, appropriate affect, intact judgment & insight - Labs CBC & Chem 7: 01/02/19 07:32 01/02/19 07:32 Labs: Abnormal Lab Results - Last 24 Hours (Table) 01/02/19 01/02/19 Range/Units 07:32 07:32 RBC 3.81 L (4.30-5.90) m/uL Hgb 11.1 L (13.0-17.5) gm/dL Hct 33.2 L (39.0-53.0) % Sodium 129 L (137-145) mmol/L Potassium 3.4 L (3.5-5.1) mmol/L Chloride 92 L (98-107) mmol/L BUN 6 L (9-20) mg/dL Creatinine 0.49 L (0.66-1.25) mg/dL Calcium 10.3 H (8.4-10.2) mg/dL Assessment and Plan Assessment: 1. Acute syncope; multifactorial; poor oral intake, dehydration, electrolyte imbalance - We will continue to monitor patient on telemetry 2. Electrolyte imbalance; hyponatremia/hypokalemia - We'll start patient on IV fluids, normal saline at a rate of 100 mL an hour; monitor renal function and electrolytes closely - Patient was treated for hypokalemia in ED; we will order stat labs to follow- up on electrolyte abnormality and supplement accordingly 3. Leukocytosis; possibly reactive; we will continue to monitor CBC and initiate sepsis workup if white blood count continues to trend upward patient is febrile 4. Hypertension; patient's blood pressure remains soft possibly due to dehydration; we will hold off on oral antihypertensive therapy until blood p ressures improved 5. Lungs CA; patient relates that he was diagnosed about 3 years ago and has decided not to pursue any treatment 6. Constipation; continue with home dose of MiraLAX 7. DVT prophylaxis; SCDs/early ambulation CODE STATUS; full code Time with Patient: Greater than 30
[2019-01-03] MEDS: SODIUM CHLORIDE 0.9% 1,000 ML IV SCH ×2 (03:38→20:25)
--- NOTE | 2019-01-03 07:38 | P.PN ---
Subjective From the medical records: 68-year-old male patient brought to ED with complaint of a syncopal event; according to patient was coming out of the bedroom to eat when he felt very dizzy, weak and lightheaded and passed out on the floor; relates that patient didn't hit his head on the floor which is carpeted; patient did wake up and helped him to the dining chair but he remained weak and started having some tremors to both hands and sweaty at which time called EMS 01/02/2019 Patient is seen and evaluated in room; denies any significant complaint; wants to be able to go home Vital signs are reviewed and show a temperature of 97.6, pulse 60, respiration 15 and blood pressure of 155/75 with SpO2 of 99% on room air Labs show a CBC with hemoglobin of 11.9, sodium of 129 which is improved from 128 yesterday; potassium of 3.4; calcium of 10.3 and magnesium of 1.5 We will supplement potassium and magnesium per protocol; continue with IV fluid hydration and monitor calcium levels closely; we will recommend further workup if calcium levels remain elevated I after adequate hydration; we will continue IV fluids in form of normal saline and continue to monitor sodium levels Patient's blood pressure remains elevated; home medications namely amlodipine 5 mg daily was held upon admission due to dehydration and hypotension; we will reorder home meds and continue to monitor Possible discharge in next 24-48 hours once electrolyte imbalance is corrected 01/03/2019, this is a first day I am taking care of the patient Subjective This is a pleasant 68 years old male who presents because of syncope. Patient feels generally weak, lying in bed. He denies chest pain or dyspnea. No dizziness. He is able to walk to the restroom with no difficulty. Denies abdominal pain or nausea vomiting. No change in urine or bowel habits. No fever. Sodium was on the low side at 128 and 129 yesterday. Repeat sodium from today is pending. Patient denies suicidal ideation, no homicidal ideation, no hallucination. He smokes less than a pack per day and she drinks about 2-3 beers per day and uses marijuana occasionally. No other illicit drugs. Labs and vitals are reviewed, discussed sodium abnormal T is low potassium and magnesium problems. Past patient if he has lung cancer, he told me that one time he is been told he has lung cancer and he walked away. I asked him if he knows he has lung mass and he denies. A copy of the chest x-ray is a provided and readied for the patient, patient took copy of the chest x-ray and states he and acknowledges he has lung mass, however he wants to follow up with his PCP and he does not want any chemo or radiotherapy. Objective - Vital Signs Vital signs: Vital Signs Temp 97.9 F 01/03/19 06:20 Pulse 67 01/03/19 06:20 Resp 16 01/03/19 06:20 BP 171/77 01/03/19 06:20 Pulse Ox 100 01/03/19 06:20 Intake & Output 01/02/19 01/03/19 01/03/19 18:59 06:59 18:59 Intake Total 920 Output Total 600 Balance 920 -600 Intake: Intake, IV Titration 920 Amount Sodium Chloride 0.9% 1, 320 000 ml @ 20 mls/hr IV . Q24H [facility] Rx#:[id number] Sodium Chloride 0.9% 1, 600 000 ml @ 75 mls/hr IV . [id number] [facility] Rx#:[id number] Output: Urine 600 Other: # Voids 3 2 # Bowel Movements 2 1 - Exam -GENERAL: The patient is alert and oriented x3, not in any acute distress. Generally weak HEENT: Pupils are round and equally reacting to light. EOMI. No scleral icterus. No conjunctival pallor. Normocephalic, atraumatic. No pharyngeal erythema. No thyromegaly. CARDIOVASCULAR: S1 and S2 present. No murmurs, rubs, or gallops. PULMONARY: Chest is clear to auscultation, no wheezing or crackles. ABDOMEN: Soft, nontender, nondistended, normoactive bowel sounds. No palpable organomegaly. MUSCULOSKELETAL: No joint swelling or deformity. EXTREMITIES: No cyanosis, clubbing, or pedal edema. NEUROLOGICAL: Gross neurological examination did not reveal any focal deficits. SKIN: No rashes. no petechiae. - Labs CBC & Chem 7: 01/02/19 07:32 01/02/19 07:32 Labs: Abnormal Lab Results - Last 24 Hours (Table) 01/02/19 01/02/19 01/02/19 Range/Units 07:32 07:32 07:32 RBC 3.81 L (4.30-5.90) m/uL Hgb 11.1 L (13.0-17.5) gm/dL Hct 33.2 L (39.0-53.0) % Sodium 129 L (137-145) mmol/L Potassium 3.4 L (3.5-5.1) mmol/L Chloride 92 L (98-107) mmol/L BUN 6 L (9-20) mg/dL Creatinine 0.49 L (0.66-1.25) mg/dL Calcium 10.3 H (8.4-10.2) mg/dL Magnesium 1.5 L (1.6-2.3) mg/dL Assessment and Plan Assessment: 1. Acute syncope; multifactorial; poor oral intake, dehydration, electrolyte imbalance - We will continue to monitor patient on telemetry -Patient denies physical therapy 2. Electrolyte imbalance; hyponatremia/hypokalemia -Continue with normal saline at a rate of 100 mL an hour; monitor renal function and electrolytes closely - Patient was treated for hypokalemia in ED; we will order stat labs to follow- up on electrolyte abnormality and supplement accordingly 3. Leukocytosis; possibly reactive; resolved 4. Hypertension; patient's blood pressure remains soft possibly due to dehydration; we will hold off on oral antihypertensive therapy until blood press ures improved 5. Lungs CA/left upper lobe lung mass; patient is aware and he does not want any chemo or radiotherapy. patient relates that he was diagnosed about 3 years ago and has decided not to pursue any treatment 6. Constipation; continue with home dose of MiraLAX 7. DVT prophylaxis; SCDs/early ambulation
[2019-01-03] MEDS: DULoxetine HCL 20 MG CAPSULE.DR PO SCH (08:14)
[2019-01-03] MEDS: ASPIRIN 325 MG TAB PO SCH (08:15)
[2019-01-03] MEDS: POLYETHYLENE GLYCOL 3350 17 GM POWD.PACK PO SCH (08:15)
[2019-01-03] MEDS: TAMSULOSIN 0.4 MG CAP.ER.24H PO SCH (08:15)
[2019-01-03] MEDS: FAMOTIDINE 20 MG/2 ML VIAL IV SCH ×2 (08:23→22:23)
[2019-01-03] MEDS: HEPARIN SODIUM,PORCINE 5,000 UNIT/ML 1 ML VIAL SQ SCH ×2 (08:23→22:23)
[2019-01-03] MEDS ORDERED: amLODIPine 5 MG TAB PO SCH (09:00)
[2019-01-03] MEDS ORDERED: FUROSEMIDE 20 MG TAB PO SCH (09:00)
[2019-01-03 09:19] LABS: African American GFR (CKD) >90 (>60 ml/min/1.73 sqM); Anion Gap 8 mmol/L; Blood Urea Nitrogen 5 mg/dL (9-20); Calcium 10.3 mg/dL (8.4-10.2); Carbon Dioxide 30 mmol/L (22-30); Chloride 90 mmol/L (98-107); Glucose 115 mg/dL (74-99); Magnesium 1.5 mg/dL (1.6-2.3); Potassium 3.3 mmol/L (3.5-5.1); Sodium 128 mmol/L (137-145)
[2019-01-03] MEDS: POTASSIUM CHLORIDE ER 20 MEQ TAB.ER PO SCH ×4 (10:28→18:01)
[2019-01-03] MEDS: MAGNESIUM SULFATE-D5W PMX 1 GM in DEXTROSE/WATER 1 100ML.BAG IVPB SCH ×2 (10:29→11:24)
[2019-01-03 18:21] LABS: Appearance,Urine Clear (Clear); Bilirubin,Urine Negative (Negative); Blood,Urine Moderate (Negative); Color,Urine Yellow; Glucose,Urine (UA) Negative (Negative); Ketones,Urine Negative (Negative); Leukocyte Esterase,Urine Negative (Negative); Mucus,Urine Rare /hpf; Nitrite,Urine Negative (Negative); PH, Urine 7.5 (5.0-8.0); Protein,Urine Negative (Negative); RBC,Urine >182 /hpf (0-5); WBC,Urine 3 /hpf (0-5)
[2019-01-03] MEDS ORDERED: POTASSIUM CHLORIDE ER 20 MEQ TAB.ER PO STA (18:30)
[2019-01-03] MEDS ORDERED: MAGNESIUM SULFATE-D5W PMX 1 GM in DEXTROSE/WATER 1 100ML.BAG IVPB ONE (19:00)
[2019-01-03] MEDS ORDERED: SODIUM CHLORIDE TAB 1 GM TAB PO SCH (21:00)
[2019-01-04 04:54] VITALS: BP 172/84; PULSE 72; RESP 20; TEMP 97.7
--- NOTE | 2019-01-04 07:40 | P.DS ---
Providers Date of admission: 12/31/18 22:40 Attending physician: Mary Grace Chakraborty Primary care physician: [facility] Hospital Course: Please note that patient signed leaving AMA, this is not a true discharge summary Dx: 1. Acute syncope; multifactorial; poor oral intake, dehydration, electrolyte imbalance 2. Electrolyte imbalance; hyponatremia/hypokalemia 3. Leukocytosis; possibly reactive; resolved 4. hematuria , with post void residual 0 5. Hypertension; patient's blood pressure remains soft possibly due to dehydration; we will hold off on oral antihypertensive therapy until blood pressures improved 6. Lungs CA/left upper lobe lung mass; patient is aware and he does not want any chemo or radiotherapy. patient relates that he was diagnosed about 3 years ago and has decided not to pursue any treatment 7. Constipation; continue with home dose of MiraLAX 8. Nicotine dependence 9. Patient and decided to leave AMA Hospital course: This is a pleasant 68 years old -[place] male who presents because of syncope. Patient follows with crime prevention police officer Dr. Guerin profound left upper lung mass. 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 Chest x-ray on 12/31/2018 showing left upper lobe mass with mediastinal adenopathy significantly increased compared to last exam. I discussed the case with the patient yesterday and the patient and his today, both aware of the lung mass and the high likelihood of being cancerous. They both don't want any intervention, they don't want any biopsy, they don't want any surgical intervention or chemo and radiotherapy. As an alternative are offered for the patient to call palliative care consult/hospice care, however patient and at bedside still denies and want to leave this morning as soon as possible. Both patient and were made aware of the other medical problems including but not limited to electrolyte embolus of hyponatremia, hematuria, they still want to leave AMA. Risks including but not limited to organ dysfunction, sepsis, urinary retention, breathing difficulty, severe pain and/or and patient and verbalized understanding and still want to leave AMA. Patient was states that she [facility]. Based upon my evaluation looks like patient has capacity to make medical decision and he shows consistency in his understanding and intent to leave his lung mass without treatment even if it was cancerous as he was told me yesterday and today. However patient has no respiratory symptoms, no dyspnea or chest pain, no coughing. No abdominal pain or nausea vomiting. He is tolerating diet well. No fever. Also patient refused physical therapy earlier Problems and management plan were discussed with the patient and he verbalized understanding and acceptance Patient was found stable and can be discharged home however he needs follow-up as an outpatient. Patient was instructed to follow up with PCP within one week and patient agrees Gen: patient is a AAOx3, no distress, thin built CVS: S1-S2, RRR, no murmur Lungs: B/L CTA, no wheezing Abdomen: soft, no distention, no tenderness, positive bowel sounds Extremity: no leg edema or induration Time spent more than 35 minutes Patient Condition at Discharge: Fair Plan - Discharge Summary Discharge Rx Participant: Yes New Discharge Prescriptions: No Action Polyethylene Glycol 3350 [Miralax] 17 gm PO DAILY amLODIPine [Norvasc] 5 mg PO DAILY Tamsulosin [Flomax] 0.4 mg PO DAILY Naproxen 500 mg PO BID PRN PRN Reason: Pain Furosemide [Lasix] 20 mg PO DAILY DULoxetine HCL [Cymbalta] 20 mg PO DAILY Discharge Medication List Polyethylene Glycol 3350 [Miralax] 17 gm PO DAILY 02/16/17 [History] DULoxetine HCL [Cymbalta] 20 mg PO DAILY 12/31/18 [History] Furosemide [Lasix] 20 mg PO DAILY 12/31/18 [History] Naproxen 500 mg PO BID PRN 12/31/18 [History] Tamsulosin [Flomax] 0.4 mg PO DAILY 12/31/18 [History] amLODIPine [Norvasc] 5 mg PO DAILY 12/31/18 [History] Follow up Appointment(s)/Referral(s): Mikael Craig DO [Primary Care Provider] - 1-2 days
== END 2019-01-04 08:57 | disposition left against medical advice (07) | DRG 641 ==
LOC: EC 20:35 → 3SCARD 22:40 → 4MS4W 01-01 18:29
PROVIDERS: ADMIT Hospitalist; ATTEND Hospitalist
DX: E86.0 Dehydration (principal); C34.12 Malignant neoplasm of upper lobe, left bronchus or lung; E87.1 Hypo-osmolality and hyponatremia; E87.6 Hypokalemia; F17.210 Nicotine dependence, cigarettes, uncomplicated; D72.828 Other elevated white blood cell count; I10 Essential (primary) hypertension; K21.9 Gastro-esophageal reflux disease without esophagitis; K59.00 Constipation, unspecified; R31.9 Hematuria, unspecified; Z79.899 Other long term (current) drug therapy; Z88.8 Allergy status to other drugs, medicaments and biological substances
CPT/HCPCS: 36415; 70450; 71046; 72125; 80048; 80053; 80061; 81001; 82550; 83735; 83880; 84100; 84132; 84484; 85025; 85610; 85730; 93005; 96360; 99285

== ENCOUNTER 2019-04-08 18:59 | Inpatient (IN) | payer OTHER, MEDICARE ==
[2019-04-08 20:18] LABS: ALT 6 U/L (4-49); AST 20 U/L (17-59); African American GFR (CKD) >90 (>60 ml/min/1.73 sqM); Albumin 2.9 g/dL (3.5-5.0); Alkaline Phosphatase 96 U/L (38-126); Anion Gap 5 mmol/L; Blood Urea Nitrogen 17 mg/dL (9-20); Calcium 11.9 mg/dL (8.4-10.2); Carbon Dioxide 33 mmol/L (22-30); Chloride 99 mmol/L (98-107); Glucose 100 mg/dL (74-99); Magnesium 1.7 mg/dL (1.6-2.3); Non-African American GFR(CKD) >90 (>60 ml/min/1.73 sqM); Sodium 137 mmol/L (137-145); Total Bilirubin 0.4 mg/dL (0.2-1.3); Total Protein 7.2 g/dL (6.3-8.2)
--- NOTE | 2019-04-08 20:31 | XR ---
EXAMINATION TYPE: XR chest 2V DATE OF EXAM: 04/08/2019 COMPARISON: 12/31/2018 HISTORY: Syncope TECHNIQUE: 2 views FINDINGS: There is dense consolidation in the anterior segment left upper lobe. Right lung is clear. Heart size is normal. There is no heart failure. IMPRESSION: Masslike consolidation left upper lobe is increased compared to last exam. This is consis tent with progression of tumor. No heart failure seen.
--- NOTE | 2019-04-08 20:34 | CT ---
EXAMINATION TYPE: CT brain wo con DATE OF EXAM: 04/08/2019 COMPARISON: 12/31/2018 HISTORY: Altered mental status. CT DLP: 2787.4 mGycm Automated exposure control for dose reduction was used. Multiple axial sections were obtained of the brain without contrast. There is cerebral cortical atrophy. There is no mass effect nor midline shift. There is no sign of in tracranial hemorrhage. There is some white matter hypodensity both frontal lobes. Calvarium is intact . IMPRESSION: Cerebral atrophy and chronic small vessel ischemia. No acute intracranial abnormality. No significant change.
[2019-04-08 20:38] LABS: HCT 27.6 % (39.0-53.0); HGB 8.5 gm/dL (13.0-17.5); Hypochromasia Slight; MCHC 30.9 g/dL (31.0-37.0); MCV 80.8 fL (80.0-100.0); Mean Platelet Volume 8.5; Platelet Count 488 k/uL (150-450); RBC 3.42 m/uL (4.30-5.90); RDW 14.4 % (11.5-15.5); WBC 11.1 k/uL (3.8-10.6)
[2019-04-08 20:45] LABS: INR 0.9 (<1.2); Prothrombin Time 9.9 sec (9.0-12.0)
--- NOTE | 2019-04-08 20:54 | ED ---
General Adult HPI - General Chief complaint: Altered Mental Status Stated complaint: Dehydrated Time Seen by Provider: 04/08/19 19:33 Source: family, EMS Mode of arrival: EMS Limitations: altered mental status - History of Present Illness Initial comments: Dictation was produced using [employer] dictation software. please excuse any grammatical, word or spelling errors. Chief Complaint: 68-year-old male with past medical history of lung tumor presents with generalized weakness and altered mental status. History of Present Illness: 68-year-old male who presents with generalized weakness and altered mental status. He presents today with his who reports that over the last 3 days his symptoms acutely worsen. He has however for the last several months been showing symptoms like this. He's been weak and off his baseline. Patient was complaining of total body pain and decided to call EMS for patient be transferred to the emergency department. 3 years ago patient was diagnosed with lung cancer. Patient has refused treatment for his lung cancer. Patient is unreliable historian at this time. reported that rg nt had a PET scan performed showing metastatic disease to the brain. History was obtained from and family friend. The ROS documented in this emergency department record has been reviewed and c onfirmed by me. Those systems with pertinent positive or negative responses have been documented in the HPI. All other systems are other negative and/or noncontributory. PHYSICAL EXAM: General Impression: Alert and oriented x2/4, slow to speak, slow to respond, not in acute distress HEENT: Normocephalic atraumatic, extra-ocular movements intact, pupils equal and reactive to light bilaterally, mucous membranes moist. Cardiovascular: Heart regular rate and rhythm, S1&S2 audible, no murmurs, rubs or gallops Chest: Lungs clear to auscultation bilaterally, no rhonchi, no wheeze, no rales Abdomen: Bowel sounds present, abdomen soft, non-tender, non-distended, no organomegaly Musculoskeletal: Pulses present and equal in all extremities, no peripheral edema Motor: no focal deficits noted, weakness to all extremities Neurological: CN II-XII grossly intact, no focal motor or sensory deficits noted Skin: Intact with no visualized rashes Psych: Normal affect and mood ED course: 68-year-old male presents with generalized weakness. Has history of lung cancer with metastatic disease. Vital signs upon arrival are within acceptable limits. was requesting admission with hospice consultation. Laboratory evaluation obtained. Mild leukocytosis of 11.1. Hemoglobin 8.5. White count is negative. Metabolic panel is within acceptable limits. Urinalysis is negative. Urine drug screen is positive for marijuana. Patient reevaluated at bedside found to be in stable medical condition. Chest x-ray and computed tomography scan of the brain were obtained. There is masslike consolidation the left upper lobe that increase compared to last exam. CT does not show an acute processes. Patient be admitted. Discussed patient case with Virginia Olsen who is environmental planner for [facility] hospitalist group. EKG interpretation: Ventricular rate 74, sinus rhythm, MT interval 124, care is 82, QTC 417. No MT prolongation, no QTC prolongation, no ST or T-wave changes noted. . Overall, this EKG is unremarkable - Related Data Home Medications Medication Instructions Recorded Confirmed Polyethylene Glycol 3350 [Miralax] 17 gm PO DAILY 02/16/17 12/31/18 DULoxetine HCL [Cymbalta] 20 mg PO DAILY 12/31/18 12/31/18 Furosemide [Lasix] 20 mg PO DAILY 12/31/18 12/31/18 Naproxen 500 mg PO BID PRN 12/31/18 12/31/18 Tamsulosin [Flomax] 0.4 mg PO DAILY 12/31/18 12/31/18 amLODIPine [Norvasc] 5 mg PO DAILY 12/31/18 12/31/18 Allergies Allergy/AdvReac Type Severity Reaction Status Date / Time Beta-Blockers Allergy Unknown Verified 12/31/18 21:58 (Beta-Adrenergic Bloc STEROIDS Allergy Unknown Uncoded 12/31/18 20:50 Review of Systems ROS Statement: Those systems with pertinent positive or pertinent negative responses have been documented in the HPI. ROS Other: All systems not noted in ROS Statement are negative. Past Medical History Past Medical History: Cancer, GERD/Reflux, Hypertension Additional Past Medical History / Comment(s): lung ca History of Any Multi-Drug Resistant Organisms: None Reported Additional Past Surgical History / Comment(s): LEFT TOE SURGERY, AND RIGHT TOE SURGERY, scar on chest pt states " it just grew there" Past Anesthesia/Blood Transfusion Reactions: No Reported Reaction Past Psychological History: No Psychological Hx Reported Smoking Status: Former smoker Past Alcohol Use History: None Reported Past Drug Use History: None Reported, Marijuana - Past Family History Mother History Unknown: Yes Father History Unknown: Yes General Exam Limitations: altered mental status Course Vital Signs 04/08/19 04/08/19 19:06 21:10 Temperature 97.5 F L Pulse Rate 68 82 Respiratory 20 18 Rate Blood Pressure 175/83 172/80 O2 Sat by Pulse 99 100 Oximetry Medical Decision Making - Lab Data Result diagrams: 04/08/19 19:03 04/08/19 19:03 Lab Results 04/08/19 04/08/19 04/08/19 Range/Units 19:03 19:03 19:03 WBC 11.1 H (3.8-10.6) k/uL RBC 3.42 L (4.30-5.90) m/uL Hgb 8.5 L (13.0-17.5) gm/dL Hct 27.6 L (39.0-53.0) % MCV 80.8 (80.0-100.0) fL MCH 25.0 (25.0-35.0) pg MCHC 30.9 L (31.0-37.0) g/dL RDW 14.4 (11.5-15.5) % Plt Count 488 H (150-450) k/uL Neutrophils % (Manual) 73 % Lymphocytes % (Manual) 13 % Monocytes % (Manual) 11 % Eosinophils % (Manual) 1 % Metamyelocytes % 3 % Myelocytes % 1 % Neutrophils # (Manual) 8.10 H (1.3-7.7) k/uL Lymphocytes # (Manual) 1.44 (1.0-4.8) k/uL Monocytes # (Manual) 1.22 H (0-1.0) k/uL Eosinophils # (Manual) 0.11 (0-0.7) k/uL Metamyelocytes # (Man) 0.33 H (0) k/uL Myelocytes # (Manual) 0.11 H (0) k/uL Nucleated RBCs 0 (0-0) /100 WBC Hypochromasia Slight Rouleaux Present PT 9.9 (9.0-12.0) sec INR 0.9 (<1.2) APTT 22.0 (22.0-30.0) sec Sodium 137 (137-145) mmol/L Potassium 4.0 (3.5-5.1) mmol/L Chloride 99 (98-107) mmol/L Carbon Dioxide 33 H (22-30) mmol/L Anion Gap 5 mmol/L BUN 17 (9-20) mg/dL Creatinine 0.64 L (0.66-1.25) mg/dL Est GFR (CKD-EPI)AfAm >90 (>60 ml/min/1.73 sqM) Est GFR (CKD-EPI)NonAf >90 (>60 ml/min/1.73 sqM) Glucose 100 H (74-99) mg/dL Calcium 11.9 H (8.4-10.2) mg/dL Magnesium 1.7 (1.6-2.3) mg/dL Total Bilirubin 0.4 (0.2-1.3) mg/dL AST 20 (17-59) U/L ALT 6 (4-49) U/L Alkaline Phosphatase 96 (38-126) U/L Ammonia (<30) umol/L Troponin I (0.000-0.034) ng/mL Total Protein 7.2 (6.3-8.2) g/dL Albumin 2.9 L (3.5-5.0) g/dL Urine Color Urine Appearance (Clear) Urine pH (5.0-8.0) Ur Specific Matteson (1.001-1.035) Urine Protein (Negative) Urine Glucose (UA) (Negative) Urine Ketones (Negative) Urine Blood (Negative) Urine Nitrite (Negative) Urine Bilirubin (Negative) Urine Urobilinogen (<2.0) mg/dL Ur Leukocyte Esterase (Negative) Urine RBC (0-5) /hpf Urine Bacteria (None) /hpf Hyaline Casts (0-2) /lpf Urine Yeast (Budding) (None) /hpf Urine Opiates Screen (NotDetected) Ur Oxycodone Screen (NotDetected) Urine Methadone Screen (NotDetected) Ur Propoxyphene Screen (NotDetected) Ur Barbiturates Screen (NotDetected) U Tricyclic Antidepress (NotDetected) Ur Phencyclidine Scrn (NotDetected) Ur Amphetamines Screen (NotDetected) U Methamphetamines Scrn (NotDetected) U Benzodiazepines Scrn (NotDetected) Urine Cocaine Screen (NotDetected) U Marijuana (THC) Screen (NotDetected) 04/08/19 04/08/19 04/08/19 Range/Units 19:03 20:22 21:21 WBC (3.8-10.6) k/uL RBC (4.30-5.90) m/uL Hgb (13.0-17.5) gm/dL Hct (39.0-53.0) % MCV (80.0-100.0) fL MCH (25.0-35.0) pg MCHC (31.0-37.0) g/dL RDW (11.5-15.5) % Plt Count (150-450) k/uL Neutrophils % (Manual) % Lymphocytes % (Manual) % Monocytes % (Manual) % Eosinophils % (Manual) % Metamyelocytes % % Myelocytes % % Neutrophils # (Manual) (1.3-7.7) k/uL Lymphocytes # (Manual) (1.0-4.8) k/uL Monocytes # (Manual) (0-1.0) k/uL Eosinophils # (Manual) (0-0.7) k/uL Metamyelocytes # (Man) (0) k/uL Myelocytes # (Manual) (0) k/uL Nucleated RBCs (0-0) /100 WBC Hypochromasia Rouleaux PT (9.0-12.0) sec INR (<1.2) APTT (22.0-30.0) sec Sodium (137-145) mmol/L Potassium (3.5-5.1) mmol/L Chloride (98-107) mmol/L Carbon Dioxide (22-30) mmol/L Anion Gap mmol/L BUN (9-20) mg/dL Creatinine (0.66-1.25) mg/dL Est GFR (CKD-EPI)AfAm (>60 ml/min/1.73 sqM) Est GFR (CKD-EPI)NonAf (>60 ml/min/1.73 sqM) Glucose (74-99) mg/dL Calcium (8.4-10.2) mg/dL Magnesium (1.6-2.3) mg/dL Total Bilirubin (0.2-1.3) mg/dL AST (17-59) U/L ALT (4-49) U/L Alkaline Phosphatase (38-126) U/L Ammonia <9 (<30) umol/L Troponin I <0.012 (0.000-0.034) ng/mL Total Protein (6.3-8.2) g/dL Albumin (3.5-5.0) g/dL Urine Color Yellow Urine Appearance Turbid (Clear) Urine pH 8.0 (5.0-8.0) Ur Specific Matteson 1.012 (1.001-1.035) Urine Protein Negative (Negative) Urine Glucose (UA) Negative (Negative) Urine Ketones Negative (Negative) Urine Blood Negative (Negative) Urine Nitrite Negative (Negative) Urine Bilirubin Negative (Negative) Urine Urobilinogen 3.0 (<2.0) mg/dL Ur Leukocyte Esterase Small H (Negative) Urine RBC 5 (0-5) /hpf Urine Bacteria Rare H (None) /hpf Hyaline Casts 2 (0-2) /lpf Urine Yeast (Budding) Many H (None) /hpf Urine Opiates Screen Not Detected (NotDetected) Ur Oxycodone Screen Not Detected (NotDetected) Urine Methadone Screen Not Detected (NotDetected) Ur Propoxyphene Screen Not Detected (NotDetected) Ur Barbiturates Screen Not Detected (NotDetected) U Tricyclic Antidepress Not Detected (NotDetected) Ur Phencyclidine Scrn Not Detected (NotDetected) Ur Amphetamines Screen Not Detected (NotDetected) U Methamphetamines Scrn Not Detected (NotDetected) U Benzodiazepines Scrn Not Detected (NotDetected) Urine Cocaine Screen Not Detected (NotDetected) U Marijuana (THC) Screen Detected H (NotDetected) Disposition Clinical Impression: Altered mental status Disposition: ADMITTED IP TO THIS HOSP Condition: Fair Referrals: [facility],Clinic [Primary Care Provider] - 1-2 days Decision Time: 22:25
[2019-04-08 21:15] LABS: Eosinophils # (M) 0.11 k/uL (0-0.7); Lymphocytes # (M) 1.44 k/uL (1.0-4.8); Metamyelocytes # (M) 0.33 k/uL (0); Metamyelocytes % 3 %; Monocytes # (M) 1.22 k/uL (0-1.0); Myelocytes # (M) 0.11 k/uL (0); Myelocytes % 1 %; Neutrophils % (M) 73 %; Nucleated Red Blood Cells 0 /100 WBC (0-0); Total Cells Counted 200
[2019-04-08 21:16] LABS: Rouleaux Present
[2019-04-08 21:35] LABS: Appearance,Urine Turbid (Clear); Bacteria,Urine Rare /hpf; Bilirubin,Urine Negative (Negative); Blood,Urine Negative (Negative); Budding Yeast,Urine Many /hpf; Color,Urine Yellow; Glucose,Urine (UA) Negative (Negative); Hyaline Casts,Urine 2 /lpf (0-2); Ketones,Urine Negative (Negative); Leukocyte Esterase,Urine Small (Negative); Nitrite,Urine Negative (Negative); Protein,Urine Negative (Negative); RBC,Urine 5 /hpf (0-5); Specific Gravity,Urine 1.012 (1.001-1.035)
[2019-04-08] MEDS ORDERED: MORPHINE SULFATE 4 MG/ML SYRINGE IV STA (21:35)
[2019-04-08 21:43] LABS: Amphetamine Screen,Urine Not Detected (NotDetected); Barbiturate Screen,Urine Not Detected (NotDetected); Benzodiazepines Screen,Urine Not Detected (NotDetected); Cocaine Screen,Urine Not Detected (NotDetected); Methadone Screen, Urine Not Detected (NotDetected); Opiate Screen,Urine Not Detected (NotDetected); Oxycodone Screen, Urine Not Detected (NotDetected); Phencyclidine Screen,Urine Not Detected (NotDetected); Tricyclic Antidepressant,Urine Not Detected (NotDetected); Urn Cannabinoid Scrn Detected (NotDetected)
[2019-04-08] MEDS ORDERED: NALOXONE 0.4 MG/ML 1 ML VIAL IV PRN (22:22)
[2019-04-08] MEDS: SODIUM CHLORIDE 0.9% 1,000 ML IV SCH (22:40)
[2019-04-09 10:25] VITALS: BMI 15.4
[2019-04-09] MEDS: LORazepam 1 MG TAB PO PRN ×2 (11:48→23:50)
--- NOTE | 2019-04-09 19:10 | HP ---
HISTORY AND PHYSICAL DATE OF SERVICE: 04/09/2019 CHIEF COMPLAINT: Change in mental status and dehydration. HISTORY OF PRESENT ILLNESS: This 68-year-old gentleman with a past medical history of multiple medical problems including left upper lobe lung cancer with mass lesion, was being followed by Dr. Craig in outpatient setting. The patient also had other multiple medical problems including GERD, hypertension, history of nicotine dependence also. The patient previously opted to have no treatment and patient was recently admitted with syncope, electrolyte abnormality, dehydration, and multiple other medical problems. Currently the patient was living at home, cared by the family and the patient was taken to the ER with the complaints of change in mental status and dehydration. He has been weak and off his baseline. The patient also had severely diminished p.o. intake. The patient also complaining of diffuse aches and pains also. The patient was subsequently taken to [facility] and admitted for further evaluation and treatment. The family is also at the bedside at this time and also considering the possibility of hospice also at this time because of the multiple complex medical issues and rapidly deteriorating condition of the patient. The patient is unable to give coherent history, most of the history is taken by my discussion with staff, discuss with the family at the bedside and review of the chart and ER physician notes. PAST MEDICAL HISTORY: History of left lung cancer. The patient opted for no treatment. History of GERD, hypertension, history of DJD. MEDICATIONS: Prior to admission include home medications of: 1. Norvasc 5 mg p.o. daily. 2. Flomax 0.4 mg daily. 3. MiraLAX 17 gm p.o. daily. 4. Naprosyn 500 mg b.i.d. p.r.n. 5. Lasix 20 mg p.o. daily. 6. Cymbalta 20 mg p.o. daily. ALLERGIES: BETA BLOCKERS and STEROIDS. FAMILY HISTORY/SOCIAL HISTORY: Family history, social history could not be taken from the patient because of change in mental status. Per chart, history of THC. Remote history of nicotine dependence. REVIEW OF SYSTEMS: Review of systems could not be taken because of change in mental status. PHYSICAL EXAMINATION: The patient stuporous. Pulse 94, blood pressure 139/86, respirations 16, temperature 96.1, pulse ox 92% on room air. HEENT: Conjunctivae normal. Oral mucosa dry. NECK: No jugular venous distention. No carotid bruit. No lymph node enlargement. CARDIOVASCULAR: S1, S2 muffled. RESPIRATORY: Breath sounds diminished at the bases. A few scattered rhonchi and crackles. ABDOMEN: Soft, nontender. LEGS: No edema, no swelling. NERVOUS SYSTEM: Diffusely weak. SKIN: No ulcer, rash or bleeding. JOINTS: No active deforming arthropathy. LABS: WBC 11.1, hemoglobin 8.5, sodium 137, potassium 4, and creatinine 0.64. ASSESSMENT: 1. Left upper lobe lung cancer with progression. 2. Dehydration with electrolyte imbalance. 3. Change in mental status. 4. Acute metabolic encephalopathy, multifactorial. 5. Increased WBC. 6. Anemia, normocytic anemia, malignancy. 7. Thrombocytosis. 8. Hypercalcemia. 9. Hypoalbuminemia with severe protein-calorie malnutrition. 10.History of gastroesophageal reflux disease. 11.Hypertension. 12.History of lung cancer. 13.History of degenerative joint disease. 14.Remote history of nicotine dependence. 15.NO CODE, NO CPR, NO VENT. RECOMMENDATIONS AND DISCUSSION: This 68-year-old gentleman presented with multiple complex medical issues. At this time, I recommend to continue the current medications. At this time, the family has expressed wishes to be hospice. The patient had previously clearly indicated that no treatment for lung cancer and as mentioned earlier, the chest x-ray showed progression of the disease. CT scan of the brain did not show any evidence of secondary's; but, however, showed evidence of diffuse atrophy. Once again I have discussed again at length with the family and they all expressed wishes to consider hospice. I would strongly recommend hospice in this situation with multiple medical issues. The patient also has change in mental status which could be multifactorial and would not require any detailed workup at this time, because especially since family is opting for hospice at this point. We will continue to monitor. Once again, the progress is guarded and once hospice is set up, we will consider sending the patient home. Otherwise, once again the prognosis is guarded. Further recommendations to follow. A copy of dictation forwarded to Dr. Craig who is following the patient in the [facility]. MMPOPL / COOPERN: [id number] / MTDLopez
[2019-04-09] MEDS ORDERED: cloNIDine 0.1 MG/24HR PATCH TRANSDERM SCH (23:00)
[2019-04-10] MEDS: SODIUM CHLORIDE 0.9% 1,000 ML IV SCH ×2 (03:04→22:55)
[2019-04-10] MEDS: LORazepam 1 MG TAB PO PRN (09:27)
[2019-04-10] MEDS ORDERED: NAPROXEN 250 MG TAB PO PRN (10:25)
[2019-04-10] MEDS ORDERED: ALPRAZolam 0.25 MG TAB PO PRN (10:29)
[2019-04-10] MEDS ORDERED: HYDROcodone/APAP 5-325MG 1 EACH TAB PO PRN (10:29)
[2019-04-10] MEDS ORDERED: TEMAZEPAM 15 MG CAP PO PRN (10:29)
[2019-04-10] MEDS: amLODIPine 5 MG TAB PO SCH (11:06)
[2019-04-10] MEDS: POLYETHYLENE GLYCOL 3350 17 GM POWD.PACK PO SCH ×2 (11:06→11:14)
[2019-04-10] MEDS: DULoxetine HCL 20 MG CAPSULE.DR PO SCH ×2 (11:06→20:03)
[2019-04-10] MEDS: FUROSEMIDE 20 MG TAB PO SCH (11:07)
[2019-04-10] MEDS: TAMSULOSIN 0.4 MG CAP.ER.24H PO SCH (11:13)
[2019-04-10] MEDS: DOCUSATE 100 MG CAP PO SCH (20:03)
--- NOTE | 2019-04-10 21:25 | PN ---
PROGRESS NOTE DATE OF SERVICE: 04/10/2019 This 68-year-old gentleman was admitted with a history of lung cancer, also dehydration. The patient is confused. The patient is being closely monitored. His family would like to consider hospice and hospice consultation has been ordered. No chest pain, no palpitation. PHYSICAL EXAMINATION: Pulse is 83, blood pressure 117/70, respiration 17, temperature 98 degrees, pulse ox 98% on room air. skin: HEENT: Conjunctivae normal. NECK: No JVD. CARDIOVASCULAR: S1, S2 muffled. LUNGS: Diminished breath sounds at the bases. A few scattered rhonchi and crackles. ABDOMEN: Soft, nontender. LEGS: No swelling. NERVOUS SYSTEM: Diffusely weak. LABS: WBC 11.2, hemoglobin is 8.5. Other labs are noted from the yesterday. ASSESSMENT: 1. Left upper lobe lung cancer with progression. 2. Dehydration with electrolyte imbalance. 3. Change in mental status, metabolic encephalopathy, acute, multifactorial. 4. Increased WBC. 5. Anemia, normocytic, secondary to malignancy. 6. Thrombocytosis. 7. Hypercalcemia of malignancy. 8. Hypoalbuminemia with severe protein calorie malnutrition, multifactorial. 9. History of gastroesophageal reflux disease. 10.History of hypertension. 11.History of lung cancer. 12.History of degenerative joint disease. 13.History of nicotine dependence. 14.NO CODE, NO CPR, NO VENT. RECOMMENDATIONS AND DISCUSSION: I recommend to continue current medication, continue symptomatic treatment. Otherwise, I would recommend resume the home medications per family request. Otherwise hospice evaluation, possible hospice at home once things are arranged. Prognosis guarded. Further recommendations to follow. Discussed with staff. [facility] as [facility]. Craig in the outpatient setting. MMODL / IJN: [id number] /
[2019-04-11] MEDS: FUROSEMIDE 20 MG TAB PO SCH (07:45)
[2019-04-11] MEDS: amLODIPine 5 MG TAB PO SCH (07:45)
[2019-04-11] MEDS: TAMSULOSIN 0.4 MG CAP.ER.24H PO SCH (07:45)
[2019-04-11] MEDS: POLYETHYLENE GLYCOL 3350 17 GM POWD.PACK PO SCH (07:46)
[2019-04-11] MEDS: DULoxetine HCL 20 MG CAPSULE.DR PO SCH (07:46)
[2019-04-11] MEDS: DOCUSATE 100 MG CAP PO SCH (07:54)
[2019-04-11 12:08] VITALS: BP 98/62; PULSE 76; RESP 18; TEMP 97.7
--- NOTE | 2019-04-11 15:53 | P.DS ---
Providers Date of admission: 04/10/19 09:43 Expected date of discharge: 04/11/19 Attending physician: Mary Grace Chakraborty Consults: 04/08/19 21:44 Consult Physician Routine Consulting Provider: Sari Smith Consult Reason/Comments: altered mental status Do you want consulting provider notified?: Yes Primary care physician: [facility] Course: Final diagnosis Left upper lobe lung cancer with progression Dehydration with electrolyte imbalance Change in mental status, metabolic encephalopathy, acute, multifactorial Increased WBC Anemia, normocytic, secondary to malignancy Thrombocytosis Hypercalcemia of malignancy Hypoalbuminemia with severe protein calorie malnutrition, multifactorial History of gastroesophageal reflux disease History of hypertension History of lung cancer History of degenerative joint disease history of nicotine dependence No code, no CPR, no vent Discharge disposition Patient is being discharged in a stable condition with guarded prognosis to home to continue with hospice. Patient will follow-up with Dr. Craig upon discharge. Total time taken is 35 minutes. History of present illness This is a 68-year-old male who was recently admitted with a history of lung cancer and dehydration with confusion and was being closely monitored. Family met with hospice and is agreeable to have hospice at home. Patient will be discharged today to home and will follow-up with hospice care per family's request. No reports of chest pain or palpitations at this time. Patient is afebrile. No reports of nausea or vomiting. Continues with poor oral intake. Extremely guarded prognosis. On exam vital signs are stable. Temp is 97.7F, pulse is 76, respirations are 18, blood pressure is 98/62, oxygen saturation is 100% on room air. Cardio S1, S2 are muffled. Respiratory system shows diminished breath sounds at the bases with some rhonchi and crackles noted. Abdomen is soft and nontender. Nervous system shows mild diffuse weakness. Please refer to medication reconciliation sheet for a list of medications. Patient Condition at Discharge: Fair Plan - Discharge Summary Discharge Rx Participant: No New Discharge Prescriptions: New LORazepam [Ativan] 1 mg PO Q4H PRN #10 tab PRN Reason: Agitation Or Acute Anxiety HYDROcodone/APAP 5-325MG [[place] 5-325] 1 each PO Q6HR PRN #12 tab PRN Reason: Pain Continue Polyethylene Glycol 3350 [Miralax] 17 gm PO DAILY amLODIPine [Norvasc] 5 mg PO DAILY Tamsulosin [Flomax] 0.4 mg PO DAILY Naproxen 500 mg PO BID PRN PRN Reason: Pain Furosemide [Lasix] 20 mg PO DAILY DULoxetine HCL [Cymbalta] 20 mg PO BID Potassium Chloride [Klor-Con 10] 10 meq PO DAILY Discharge Medication List Polyethylene Glycol 3350 [Miralax] 17 gm PO DAILY 02/16/17 [History] DULoxetine HCL [Cymbalta] 20 mg PO BID 12/31/18 [History] Furosemide [Lasix] 20 mg PO DAILY 12/31/18 [History] Naproxen 500 mg PO BID PRN 12/31/18 [History] Tamsulosin [Flomax] 0.4 mg PO DAILY 12/31/18 [History] amLODIPine [Norvasc] 5 mg PO DAILY 12/31/18 [History] Potassium Chloride [Klor-Con 10] 10 meq PO DAILY 04/10/19 [History] HYDROcodone/APAP 5-325MG [[place] 5-325] 1 each PO Q6HR PRN #12 tab 04/11/19 [Rx] LORazepam [Ativan] 1 mg PO Q4H PRN #10 tab 04/11/19 [Rx] Follow up Appointment(s)/Referral(s): [facility], [NON-STAFF] - 1 Week [facility],Clinic [Primary Care Provider] - 1-2 days Patient Instructions/Handouts: Hydrocodone/Acetaminophen (By mouth), Lorazepam (By mouth), Altered Mental Status (ED) Activity/Diet/Wound Care/Special Instructions: Activity Limited upon discharge Continue current diet Continue with hospice Follow-up with primary care provider upon discharge Discharge Disposition: HOME WITH HOME HEALTH SERVICES
--- NOTE | 2019-04-12 07:17 | DS ---
DISCHARGE SUMMARY DATE OF SERVICE: 04/11/2019 FINAL DIAGNOSES: 1. Left upper lobe lung cancer with progression. 2. Dehydration with electrolyte imbalance. 3. Change in mental status, metabolic encephalopathy, acute, multifactorial. 4. Increased WBC. 5. Anemia, normocytic secondary to malignancy. 6. Thrombocytosis. 7. Hypercalcemia of malignancy. 8. Hypoalbuminemia with severe protein calorie malnutrition multifactorial. 9. History of gastroesophageal reflux disease. 10.Hypertension. 11.History of lung cancer. 12.History of degenerative joint disease. 13.History of nicotine dependence. 14.NO CODE, NO CPR, NO VENT. 15.Hospice care. DISCHARGE DISPOSITION: The patient will be discharged in stable condition with guarded prognosis. Patient discharged to hospice at this time. HISTORY OF PRESENT ILLNESS: This 68-year-old gentleman with a past medical history of multiple medical problems admitted with left upper lobe cancer and dehydration and multiple other medical problems. The hospice was consulted and the family was agreeable to that and the overall prognosis remains extremely guarded and home hospice was arranged. The patient was discharged in stable condition with guarded prognosis with the following advise: 1. Diet is cardiac. 2. Activity as tolerated. 3. Follow up with Dr. Craig at [facility] as mentioned. Medications are: 1. Cymbalta 20 mg p.o. b.i.d. 2. Flomax 0.4 daily. 3. Klor-Con 10 mEq p.o. daily. 4. Lasix 20 mg p.o. daily. 5. MiraLAX 17 grams p.o. daily. 6. Naprosyn p.r.n. 7. Norvasc 5 mg p.o. daily. 8. Ativan 1 mg p.o. q.4 p.r.n. 9. Bonnie 5 mg q.6 p.r.n. Once again the patient will be discharged in stable condition with guarded prognosis. MMODL / IJN: [id number] /
== END 2019-04-11 12:35 | disposition hospice, home (50) | DRG 180 ==
LOC: EC 18:59 → 5NMEDONC 22:22 → OBSVTOIN 04-10 09:43
PROVIDERS: ADMIT Hospitalist; ATTEND Hospitalist
DX: C34.12 Malignant neoplasm of upper lobe, left bronchus or lung (principal); E43 Unspecified severe protein-calorie malnutrition; G93.41 Metabolic encephalopathy; C79.31 Secondary malignant neoplasm of brain; Z68.1 Body mass index [BMI] 19.9 or less, adult; E86.0 Dehydration; Z51.5 Encounter for palliative care; Z66 Do not resuscitate; D63.0 Anemia in neoplastic disease; D72.829 Elevated white blood cell count, unspecified; E83.52 Hypercalcemia; I10 Essential (primary) hypertension; K21.9 Gastro-esophageal reflux disease without esophagitis; M19.90 Unspecified osteoarthritis, unspecified site; R79.89 Other specified abnormal findings of blood chemistry; Z79.899 Other long term (current) drug therapy; Z87.891 Personal history of nicotine dependence; Z88.8 Allergy status to other drugs, medicaments and biological substances
CPT/HCPCS: 36415; 70450; 71046; 80053; 80306; 81001; 82140; 83735; 84484; 85025; 85610; 85730; 93005; 96374; 99285